=== PATIENT | male | born 1985 | race Caucasian/White ===

== ENCOUNTER 2018-03-24 13:38 | Emergency (ER) | payer OTHER ==
[~2018-03-24] VITALS: Ht 185.4 cm; Wt 115.9 kg
[2018-03-24 17:10] VITALS: BP 153/90
== END 2018-03-24 17:49 | disposition home or self-care (01) ==
LOC: ER 13:38
DX: S39.848A Other specified injuries of external genitals, initial encounter (principal); X58.XXXA Exposure to other specified factors, initial encounter; Y93.89 Activity, other specified; Y92.89 Other specified places as the place of occurrence of the external cause; Y99.9 Unspecified external cause status
CPT/HCPCS: 99281

== ENCOUNTER 2024-11-13 08:54 | Emergency (ER) | payer MEDICAID ==
[~2024-11-13] VITALS: Ht 182.9 cm; Wt 90.8 kg
[2024-11-13 08:57] VITALS: BP 123/83; PULSE 93; RESP 16; TEMP 98; O2SAT 99
--- NOTE | 2024-11-13 10:32 | Physician Documentation ---
History of Present Illness ~ General Chief Complaint: Multiple Medical Complaints Stated Complaint: STD CHECK Time Seen by MD: 10:02 Source: patient Mode of Arrival: POV Exam Limitations: no limitations History of Present Illness Initial Comments Presents with complaints of sore throat. Concern for STD given new sexual partner. History of multiple episodes of gonorrhea in the past. Denies other past medical history. No fevers chills. Was asked, but otherwise denies review of systems. Medication Reconciliation Allergies: Coded Allergies: No Known Allergies (Unverified , 03/24/18) Scheduled Doxycycline Monohydrate (Doxycycline Monohydrate), 1 CAP PO Q12H Past Medical History Past Medical History: No Pertinent History Other Past Medical History: History of gonorrhea in the past Past Surgical History: no surgical history Smoking Status: Current every day smoker Alcohol Use: Occasionally Drug Use: methamphetamine Review of Systems ROS Patient complains of sore throat. He is concerned for an STD. Was asked, but otherwise denies review of systems. Physical Exam Physical Exam Vital Signs: RN Vital Signs have been reviewed: Yes, Temperature: 98.0, Source: Oral, Heart Rate: 93, Respiratory Rate: 16, BP: 123/83, Pulse Oximetry: 99, Weight: 90.800 Oxygen Flow Rate: 0 Pulse Oximetry Reflects: adequate oxygenation Physical Exam General: Awake, alert, oriented. No apparent distress Throat: No lymphadenopathy on palpation. Tonsils are not enlarged. Respiratory: Lungs are clear to auscultation bilaterally. No respiratory distress. Chest: Normal shape and size. No accessory muscle use. Cardiovascular: Regular rate and rhythm. S1-S2. No murmur, gallop, rub. Gastrointestinal: Abdomen is soft. Nontender to palpation. Bowel sounds present. Extremities: No lower extremity edema, cyanosis or clubbing. Neurologic: Alert and oriented x4. Nonfocal Psychiatric: Normal mood and affect. Skin: Normal color. Warm and dry. Progress Results/Orders Results/Orders Orders - MELIDA LUCAS NP Chlam/Gc Amp Ur (11/13/24 10:24) Completed Orders - MELIDA LUCAS NP Ceftriaxone Im Kit W/Lidocaine (Rocephin (11/13/24 10:25) Azithromycin Tablet (Zithromax Tablet) (11/13/24 10:25) Syphilis Screen Poc (8/9/25 10:24) Ceftriaxone 500 Im W/Lidocaine (Rocephin (11/13/24 10:30) Medications Received in ER Medications (Trade) Dose Ordered Sig/Mauricio Route PRN Reason Start Time Stop Time Status Last Admin Dose Admin (Zithromax tablet) 1,000 mg ONCE ONCE PO 11/13/24 10:25 11/13/24 10:26 DC 11/13/24 10:52 1,000 MG (Rocephin 500MG IM kit (w/1% LIDOcaine)) 500 mg ONCE ONCE IM 11/13/24 10:30 11/13/24 10:31 DC 11/13/24 10:53 500 MG Vital Signs 11/13/24 08:57 Temp 98.0 Pulse 93 Resp 16 B/P (MAP) 123/83 Pulse Ox 99 O2 Flow Rate 0 Laboratory Tests Test 11/13/24 10:48 Syphilis Serology Negative Medical Decision Making Findings Patient presents for STD check and sore throat. He has no fevers, chills. No complaints of pain. Has not lymphadenopathy on palpation. He reports history of multiple gonorrhea exposures in the past. No known exposure currently though has a new sexual partner. Requests STI check, treatment. Also requesting syphilis screening. Rapid syphilis screening being completed. Rapid syphilis screening was pending. Patient left without receiving results. We will call if results are positive. Received treatment for gonorrhea/chlamydia. Education was provided. Patient left without receiving discharge paperwork. Departure Time of Disposition: 11:50 Disposition: 01 HOME / SELF CARE / HOMELESS Impression: Primary Impression: Contact with and (suspected) exposure to infections with a predominantly sexual mode of transmission Additional Impression: Sore throat Condition: Stable Discharge Instructions: Preventing Sexually Transmitted Infections, Adult Additional Instructions: You has been treated for both gonorrhea and chlamydia today. Your screening for syphilis has also been completed. Recommend that you follow up with a primary care provider/clinic. You [facility] also [facility] with further STI testing and prevention. Recommend that you will always wear condoms to prevent STIs. Please return for new or worsening symptoms. Referrals: NO PRIMARY CARE PROVIDER (PCP) Education Educated: Patient Educated regarding: diagnosis, treatment, prognosis, need for follow up Signature Scribe Signature: No scribe Attestation: This note was created with the assistance of voice recognition software whereby errors in grammar, syntax, and/or spelling may have occurred despite active proofreading efforts by the author. Please do not hesitate to contact the provider for clarification or for questions regarding the content of this document. MELIDA LUCAS NP Nov 13, 2024 10:32
[2024-11-13] MEDS: CefTRIAXone 1000mg IM Kit (w/lidocaine diluent) IM ONE (10:53)
[2024-11-13] MEDS: CefTRIAXone 500MG IM Kit w/LIDOcaine IM ONE (10:53)
[2024-11-13 11:55] LABS: SYPHILIS SCREENING TEST POC NEGATIVE (Negative)
[2024-11-13] MEDS ORDERED: DOXY-460 PO (13:29)
== END 2024-11-13 11:50 | disposition home or self-care (01) ==
LOC: ER 08:55
DX: J02.9 Acute pharyngitis, unspecified (principal); Z20.2 Contact with and (suspected) exposure to infections with a predominantly sexual mode of transmission; F17.200 Nicotine dependence, unspecified, uncomplicated
CPT/HCPCS: 36415; 96372; 99283; J0696

== ENCOUNTER 2024-11-13 12:45 | Emergency (ER) | payer MEDICAID ==
[~2024-11-13] VITALS: Ht 182.9 cm; Wt 90.9 kg
[2024-11-13] MEDS ORDERED: DOXY-460 PO (13:29)
--- NOTE | 2024-11-13 13:30 | Physician Documentation ---
HPI ~ General Chief Complaint: Medication Request Stated Complaint: MED REQUEST Time Seen by MD: 13:14 History of Present Illness HPI Comments Patient presents back to the emergency department after being called back. His sexual partner tested positive for syphilis. He is here for treatment. Medication Reconciliation Allergies: Coded Allergies: No Known Allergies (Unverified , 03/24/18) Scheduled Doxycycline Monohydrate (Doxycycline Monohydrate), 1 CAP PO Q12H Past Medical History Past Medical History: No Pertinent History Past Surgical History: no surgical history Alcohol Use: Occasionally Drug Use: methamphetamine Physical Exam Physical Exam Vital Signs: Weight: 90.910 Pulse Oximetry Reflects: adequate oxygenation Physical Exam General: Awake, alert, oriented. No apparent distress Neck: Supple. Normal range of motion. No JVD Respiratory: Lungs are clear to auscultation bilaterally. No respiratory distress. Chest: Normal shape and size. No accessory muscle use. Cardiovascular: Regular rate and rhythm. S1-S2. No murmur, gallop, rub. Skin: Normal color. Warm and dry. Medical Decision Making Additional info obtained from: old records Findings Patient presents for treatment for syphilis as his sexual partner tested positive. Encouraged to follow up with public Health. Unfortunately, there is no penicillin G available and was given alternative of doxycycline. Sent to pharmacy. Encouraged to complete prescription and encouraged safe sex practices. Departure Time of Disposition: 13:23 Disposition: 01 HOME / SELF CARE / HOMELESS Impression: Primary Impression: Suspected syphilis based on epidemiological factors Condition: Stable Referrals: NO PRIMARY CARE PROVIDER (PCP) Prescriptions Doxycycline Monohydrate (Doxycycline Monohydrate) 100 Mg Capsule 1 CAP PO Q12H for 14 Days, #28 CAP Prov: MELIDA LUCAS NP 11/13/24 Education Educated: Patient Educated regarding: diagnosis, treatment, need for follow up Signature Scribe Signature: No scribe Attestation: This note was created with the assistance of voice recognition software whereby errors in grammar, syntax, and/or spelling may have occurred despite active proofreading efforts by the author. Please do not hesitate to contact the provider for clarification or for questions regarding the content of this document. MELIDA LUCAS NP Nov 13, 2024 13:30
== END 2024-11-13 14:30 | disposition home or self-care (01) ==
LOC: ER 12:46
DX: A53.9 Syphilis, unspecified (principal); F15.90 Other stimulant use, unspecified, uncomplicated
CPT/HCPCS: 99283

== ENCOUNTER 2025-01-02 11:56 | Emergency (ER) | payer MEDICAID | END 2025-01-02 12:40 | disposition left against medical advice (07) | LOC: ER 11:58 | DX: Z00.8 Encounter for other general examination (principal); Z53.21 Procedure and treatment not carried out due to patient leaving prior to being seen by health care provider ==

== ENCOUNTER 2025-01-14 10:36 | Emergency (ER) | payer MEDICAID ==
[~2025-01-14] VITALS: Ht 182.9 cm; Wt 91.9 kg
[2025-01-14 10:45] VITALS: BP 127/85; PULSE 80; RESP 16; TEMP 97.4; O2SAT 98
--- NOTE | 2025-01-14 10:59 | Physician Documentation ---
History of Present Illness ~ Chief Complaint: Wound Stated Complaint: ABSCESS/MED REQUEST Time Seen by MD: 10:55 Source: patient Mode of Arrival: POV Exam Limitations: no limitations HPI 39-year-old male noticed small ingrown hair like abscesses to his abdomen 3 of them they have drained patient does shaved the hair on his abdomen and chest. Patient also is requesting documentation on his methamphetamine use to go into rehab. Tetanus within 5 years?: No Medication Reconciliation Allergies: Coded Allergies: No Known Allergies (Unverified , 01/14/25) Past Medical History Past Medical History: No Pertinent History Past Surgical History: no surgical history Alcohol Use: Occasionally Drug Use: methamphetamine Review of Systems All Other Systems at this time: Reviewed and Negative Integumentary: Reports: see HPI Physical Exam Vital Signs: RN Vital Signs have been reviewed: Yes, Temperature: 97.4, Source: Temporal, Heart Rate: 80, Respiratory Rate: 16, BP: 127/85, Pulse Oximetry: 98, Weight: 91.900 Oxygen Flow Rate: 0 Physical Exam General: Alert, no apparent distress. HEENT: moist mucous membranes. Neck: Full range of motion. Respiratory: No respiratory distress speaking in full sentences Chest: No accessory muscle use. Cardiovascular: Appears well perfused Neurologic: Oriented x4. Psychiatric: Normal mood and affect. Skin: 3 small areas with surrounding erythema, for knuckles 1-1/2 cm in diameter some drainage with palpation Progress Results/Orders Results/Orders Vital Signs 01/14/25 10:45 Temp 97.4 Pulse 80 Resp 16 B/P (MAP) 127/85 Pulse Ox 98 O2 Flow Rate 0 Medical Decision Making Findings For knuckles noted to his abdomen x3 midline there is 2 on the left side 1 on the right side the 1 on the right side is the smallest at half a cm the other 2 there is 1 centralized opening that does appear to be a hair follicle site with some drainage antibiotics warm compress discussed patient is a daily meth user and desires to go into rehab he does need documentation to state that he can go into rehab. Departure Time of Disposition: 10:58 Disposition: 01 HOME / SELF CARE / HOMELESS Impression: Primary Impression: Carbuncle and furuncle of trunk Additional Impression: Methamphetamine abuse Condition: Stable Discharge Instructions: Skin Abscess Additional Instructions: Take antibiotics as prescribed use warm compresses daily to help facilitate drainage. Patient is medically cleared for rehab due to methamphetamine abuse Referrals: NO PRIMARY CARE PROVIDER (PCP) Prescriptions Sulfamethoxazole/Trimethoprim (Bactrim Ds Tablet) 800 Mg-160 Mg Tablet 1 TAB PO Q12H for 10 Days, #20 TAB Prov: MICA MAURER NP 01/14/25 Education Educated: Patient Educated regarding: diagnosis, treatment, need for follow up Signature Scribe Signature: No scribe Attestation: The note accurately reflects work and decisions made by me.Mica Maurer - BETH 01/14/25 10:59 MICA MAURER NP Jan 14, 2025 10:59
[2025-01-14] MEDS ORDERED: SULF1TAB49 PO (11:00)
== END 2025-01-14 11:05 | disposition home or self-care (01) ==
LOC: ER 10:37
DX: L02.229 Furuncle of trunk, unspecified (principal); L02.93 Carbuncle, unspecified; F15.10 Other stimulant abuse, uncomplicated
CPT/HCPCS: 99283

== ENCOUNTER 2025-03-21 08:13 | Emergency (ER) | payer MEDICAID ==
[~2025-03-21] VITALS: Ht 182.9 cm; Wt 99.7 kg
[2025-03-21 08:15] VITALS: BP 142/88; PULSE 82; RESP 18; TEMP 97.4; O2SAT 100
== END 2025-03-21 12:23 | disposition left against medical advice (07) ==
LOC: ER 08:13
DX: A53.9 Syphilis, unspecified (principal); Z53.21 Procedure and treatment not carried out due to patient leaving prior to being seen by health care provider
CPT/HCPCS: 99281